=== PATIENT | female | born 1995 | race Two or more races ===

== ENCOUNTER 2016-09-04 20:03 | Emergency (ER) | payer SELFPAY ==
--- NOTE | ~2016-09-04 | CT2 ---
[facility] A Service of [facility] RADIOLOGY TEXT RESULTS PATIENT: CAREN ALMENDAREZ LOCATION: [facility] : [birth year] UNIT #: [id number] AGE: [address]: Vangie Khoury SEX: F ORDER DR: [id number] [facility] [address] [place], [place] [address] [id number] E MR#: [id number] Acc #: [id number] NAME: CAREN ALMENDAREZ : 1995 SEX: F STUDY DATE/TIME: 09/04/2016 20:08 UNIT: CFTX ROOM: STUDY DESCRIPTION: CT Abd and Pelv W Cont Attending Physician: Vangie Khoury P.A.-C. Ordering Physician: Vangie Khoury P.A.-C. Primary Care Physician: Primary Care Physician No MEDICAL IMAGING REPORT This report is preliminary unless electronic signature is present EXAM CT scan of the abdomen and pelvis with contrast, 09/04/2016 HISTORY Lower abdomen and pelvic pain for 2 days, vaginal pain with nausea for the last [address] was performed through the abdomen and pelvis following intravenous contrast administration only, as per clinician request. This CT exam was performed with one or more of the following radiation dose reduction techniques: Automatic exposure control, adjustment of mA and/or kV according to patient size, and iterative reconstruction. FINDINGS ABDOMEN: Exam is somewhat limited by the lack of oral contrast. The liver demonstrates mild fatty infiltration. The spleen, pancreas, gallbladder and biliary tree, adrenal glands and kidneys are normal. PELVIS FINDINGS: The gut, mesenteric and michael structures are normal. There is no free fluid in the abdomen or pelvis. 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 Lung bases are normal. IMPRESSION Septate uterus. Otherwise, negative CT scan of the abdomen and pelvis with contrast. Dictated by... Levi Ivey M.D. THIS IS AN ELECTRONICALLY VERIFIED REPORT Levi Ivey M.D. at 09/05/2016 7:30 AM [facility] A Service of [facility] RADIOLOGY TEXT RESULTS PATIENT: CAR[facility] AL[facility]AREZ [id number] [birth year] UNIT #: [id number] AGE: [address]: Vangie Khoury SEX: F ORDER DR: Jim TD: 09/05/2016 00:30 JOB #: [id number] MEDICAL IMAGING REPORT Page 1 of 1 COPY
[2016-09-04 19:13] LABS: BASOPHIL% 0.5 % (0-2.5); EOSINOPHIL# 0.1 X10e3 (0-0.7); EOSINOPHIL% 1.3 % (0.0-7.0); HEMOGLOBIN 13.2 gm/dL (12.0-16.0); LYMPHOCYTE# 2.6 X10e3 (1.0-3.5); LYMPHOCYTE% 35.1 % (17.0-45.0); MEAN CORPUSCULAR HEMOGLOBIN 28.7 PG (28-34); MEAN PLATELET VOLUME 8.8 FL (6.5-11.5); MONOCYTE# 0.5 X10e3 (0-1.0); MONOCYTE% 6.6 % (3.0-12.0); NEUTROPHIL# 4.1 X10e3 (1.5-7.1); NEUTROPHIL% 56.5 % (40-75); PLATELET COUNT 207 X10e3 (140-420); WHITE BLOOD COUNT 7.3 X10e3 (4.0-10.5)
[2016-09-04 19:16] LABS: DIFF IND NO
[2016-09-04 19:36] LABS: CREATININE SERUM 0.5 mg/dL (0.6-1.4); GLOM FILT RATE Estimated 137.4 mL/min (>60); POTASSIUM 3.9 mmol/L (3.5-5.1)
[2016-09-04 19:44] LABS: URINE SOURCE CLEAN CATCH
[2016-09-04 19:56] LABS: URINE APPEARANCE CLEAR; URINE BILIRUBIN NEG (NEG); URINE BLOOD NEG (NEG); URINE COLOR YELLOW; URINE GLUCOSE NEG (NEG); URINE KETONE NEG (NEG); URINE LEUKOCYTE ESTERASE NEG (NEG); URINE NITRATE NEG (NEG); URINE PROTEIN NEG (NEG); URINE SPECIFIC GRAVITY 1.013 (1.003-1.035); URINE UROBILINOGEN 0.2 MG/DL (NEG)
[2016-09-04 20:04] LABS: CULTURE INDICATED? NO
== END 2016-09-04 21:29 | disposition home or self-care (01) ==
LOC: CED 20:03
PROVIDERS: Physician Assistant
DX: R10.2 Pelvic and perineal pain (principal)
CPT/HCPCS: 36415; 74177; 80048; 81003; 84702; 84703; 85025; 87808; 87905; 96374; 99284; J1885; Q9967